=== PATIENT | male | born 1975 | race Caucasian/White ===

== ENCOUNTER 2017-10-21 16:28 | Emergency (ER) | payer SELFPAY ==
[2017-10-21 16:34] VITALS: BP 127/98; PULSE 80; TEMP 98; BMI 31.1
--- NOTE | 2017-10-21 16:54 | PDOC ---
History of Present Illness - General Chief Complaint: Blood Pressure Problem Stated Complaint: BLOOD PRESSURE CHECK Time Seen by Provider: 10/21/17 16:47 History Source: Patient, [employer] Helper Used (#[id number]) Exam Limitations: Clinical Condition - History of Present Illness Initial Comments: 10/21/17 17:11 Patient with no sig Past medical history present with complain of 3 years history of intermittent headache and malaise and request to do a physical exam. Patient hasn't seen any primary care for over 3 years. Report no symptoms now. Patient feels he might have blood pressure problem Past History - Past Medical History Allergies/Adverse Reactions: Allergies Allergy/AdvReac Type Severity Reaction Status Date / Time No Known Allergies Allergy Verified 10/21/17 16:34 Home Medications: Ambulatory Orders NK [No Known Home Medication] 10/21/17 COPD: No - Surgical History Appendectomy: Yes - Suicide/Smoking/Psychosocial Hx Smoking History: Never smoked Review of Systems - Review of Systems Able to Perform ROS?: Yes Is the patient limited Croatian proficient: No Constitutional: No: Chills, Diaphoresis, Fever, Loss of Appetite, Malaise, Night Sweats, Weakness, Weight Stable, Unintentional Wgt. Loss, Unexplained wgt Loss, Other HEENTM: No: Eye Pain, Blurred Vision, Tearing, Recent change in vision, Double Vision, Cataracts, Ear Pain, Ocular Prothesis, Ear Discharge, Nose Pain, Nose Congestion, Tinnitus, Nose Bleeding, Hearing Loss, Throat Pain, Throat Swelling , Mouth Pain, Dental Problems, Difficulty Swallowing, Mouth Swelling, Other Respiratory: No: Cough, Orthopnea, Shortness of Breath, SOB with Exertion, SOB at Rest, Stridor, Wheezing, Productive cough, Hemoptysis, Other Cardiac (ROS): Yes: Other (elevated blood pressure). No: Chest Pain, Edema, Irregular Heart Rate, Lightheadedness, Palpitations, Syncope, Chest Tightness ABD/GI: No: Abdominal Distended, Abd. Pain w/ defecation, Blood Streaked Bowels , Constipated, Diarrhea, Difficulty Swallowing, Nausea, Poor Appetite, Poor Fluid Intake, Rectal Bleeding, Vomiting, Indigestion, Abdominal cramping, Tarry Stools, Other Neurological: Yes: See HPI, Headache (intermittent). No: Numbness, Paresthesia , Pre-Existing Deficit, Weakness, Unsteady Gait, Dizziness All Other Systems: Reviewed and Negative *Physical Exam - Vital Signs Last Vital Signs Temp Pulse Resp BP Pulse Ox 98 F 80 18 127/98 99 10/21/17 16:30 10/21/17 16:30 10/21/17 16:30 10/21/17 16:30 10/21/17 16:30 - Physical Exam Comments: 10/21/17 17:13 GENERAL: Well developed, well nourished. Awake and alert. No acute distress. HEENT: Normocephalic, atraumatic. PERRLA, EOMI. No conjunctival pallor. Sclera are non- icteric. Moist mucous membranes. Oropharynx is clear. NECK: Supple. Full ROM. No JVD. Carotid pulses 2+ and symmetric, without bruits. No thyromegaly. No lymphadenopathy. CARDIOVASCULAR: Regular rate and rhythm. No murmurs, rubs, or gallops. Distal pulses are 2+ and symmetric. PULMONARY: No evidence of respiratory distress. Lungs clear to auscultation bilaterally. No wheezing, rales or rhonchi. ABDOMINAL: Soft. Non-tender. Non-distended. No rebound or guarding. No organomegaly. Normoactive bowel sounds. MUSCULOSKELETAL Normal range of motion at all joints. No bony deformities or tenderness. No CVA tenderness. EXTREMITIES: No cyanosis. No clubbing. No edema. No calf tenderness. SKIN: Warm and dry. Normal capillary refill. No rashes. No jaundice. NEUROLOGICAL: Alert, awake, appropriate. Cranial nerves 2-12 intact. No deficits to light touch and temperature in face, upper extremities and lower extremities. No motor deficits in the in face, upper extremities and lower extremities. Normoreflexic in the upper and lower extremities. Normal speech. Toes are down- going bilaterally. Gait is normal without ataxia. PSYCHIATRIC: Cooperative. Good eye contact. Appropriate mood and affect. General Appearance: Yes: Nourished, Appropriately Dressed. No: Apparent Distress Medical Decision Making - Medical Decision Making 10/21/17 17:13 Patient with no sig Past medical history presenting with for physical exam with feeling of elevated blood pressure as he was told by a friend to have a checkup. Patient hasn't seen primary care in over 3 years. Clinical exam unremarkable. Patient stable for home discharge with referral to primary care for checkup. *DC/Admit/Observation/Transfer Diagnosis at time of Disposition: Elevated blood pressure reading in office without diagnosis of hypertension - Discharge Dispostion Disposition: HOME Condition at time of disposition: Stable Decision to Admit order: No - Referrals Referrals: Annabelle Turk MD [Staff Physician] - - Patient Instructions Printed Discharge Instructions: DI for High Blood Pressure, How to Monitor Your Blood Pressure at Home Additional Instructions: Follow-up with referred primary care doctor for full physical - Post Discharge Activity
== END 2017-10-21 17:14 | disposition home or self-care (01) ==
LOC: JERFT 16:28
DX: R03.0 Elevated blood-pressure reading, without diagnosis of hypertension (principal)
CPT/HCPCS: 99281-25

== ENCOUNTER 2017-12-01 16:20 | Emergency (ER) | payer OTHER ==
[2017-12-01 16:43] VITALS: BP 106/74; PULSE 60; TEMP 98.5; BMI 27.5
--- NOTE | 2017-12-01 16:44 | PDOC ---
Rapid Medical Evaluation Time Seen by Provider: 12/01/17 16:40 Medical Evaluation: Allergies Allergy/AdvReac Type Severity Reaction Status Date / Time No Known Allergies Allergy Verified 12/01/17 16:40 10 16:40 I have performed a brief in-person evaluation of this patient. The patient presents with a chief complaint of: sent from primary physician's office for abnormal ekg. Patient reports chest pain with exertion and intermittently Denies pain at present. Pertinent physical exam findings are: NAD even and unlabored breathing heart s1s2 I have ordered the following: ekg, labs The patient will proceed to the ED for further evaluation.
--- NOTE | 2017-12-01 17:47 | PDOC ---
History of Present Illness <Simi Moyer - Last Filed: 12/01/17 21:20> - History of Present Illness Initial Comments: 42 year old male with no PMH presenting with exertional left sided chest pressure for the past one month. States that when he exercises he gets a 5/10, non-radiating, left sided chest pressure that resolves when ceasing his workout. He saw Dr. Ferrari earlier today who was convinced by his history and TWI in II, III., and AVF. Patient denies any previous cardiac workup or cardiac history. Denies fevers, chills, nausea, vomiting, diarrhea, or other symptoms. 12/01/17 17:54 <Lauri Brooks - Last Filed: 12/01/17 21:40> - General Chief Complaint: Chest Pain Stated Complaint: CHEST PAIN Time Seen by Provider: 12/01/17 16:40 Past History <Simi Moyer - Last Filed: 12/01/17 21:20> - Past Medical History COPD: No - Surgical History Appendectomy: Yes - Suicide/Smoking/Psychosocial Hx Smoking History: Never smoked Hx Alcohol Use: No Drug/Substance Use Hx: No <Lauri Brooks - Last Filed: 12/01/17 21:40> - Past Medical History Allergies/Adverse Reactions: Allergies Allergy/AdvReac Type Severity Reaction Status Date / Time No Known Allergies Allergy Verified 12/01/17 16:40 Home Medications: Ambulatory Orders Aspirin [ASA -] 81 mg PO DAILY #30 tab.chew 12/01/17 Review of Systems - Review of Systems Constitutional: No: Chills, Diaphoresis, Fever HEENTM: No: Eye Pain, Blurred Vision, Tearing Respiratory: No: Cough, Orthopnea, Shortness of Breath Cardiac (ROS): Yes: Chest Pain. No: Edema, Irregular Heart Rate, Lightheadedness, Palpitations, Syncope ABD/GI: No: Diarrhea, Nausea, Vomiting : No: Burning, Dysuria Musculoskeletal: No: Back Pain, Gout, Joint Pain Integumentary: No: Bruising, Change in Color, Erythema, Flushing, Lesions Neurological: No: Headache, Numbness, Paresthesia Psychiatric: No: Anxiety, Depression Endocrine: No: Flushing Hematologic/Lymphatic: No: Anemia, Blood Clots, Easy Bleeding <Lauri Brooks - Last Filed: 12/01/17 21:40> *Physical Exam - Vital Signs Last Vital Signs Temp Pulse Resp BP Pulse Ox 98.5 F 60 16 106/74 99 12/01/17 16:40 12/01/17 16:40 12/01/17 16:40 12/01/17 16:40 12/01/17 16:40 <Simi Moyer - Last Filed: 12/01/17 21:20> - Vital Signs Last Vital Signs Temp Pulse Resp BP Pulse Ox 98.5 F 60 16 106/74 99 12/01/17 16:40 12/01/17 16:40 12/01/17 16:40 12/01/17 16:40 12/01/17 16:40 - Physical Exam General Appearance: Yes: Nourished, Appropriately Dressed. No: Apparent Distress HEENT: positive: EOMI, OCTAVIO, Normal ENT Inspection, Normal Voice Neck: positive: Trachea midline, Normal Thyroid, Supple. negative: Tender, Rigid Respiratory/Chest: positive: Lungs Clear, Normal Breath Sounds. negative: Chest Tender, Respiratory Distress, Accessory Muscle Use Cardiovascular: positive: Regular Rhythm, Regular Rate Gastrointestinal/Abdominal: positive: Normal Bowel Sounds, Flat, Soft. negative : Tender Lymphatic: negative: Adenopathy, Tenderness Musculoskeletal: positive: Normal Inspection. negative: Decreased Range of Motion Extremity: positive: Normal Capillary Refill, Normal Inspection, Normal Range of Motion. negative: Tender Integumentary: positive: Normal Color, Dry, Warm Neurologic: positive: Fully Oriented, Alert, Normal Mood/Affect, Normal Response , Motor Strength 5/5 <Lauri Brooks - Last Filed: 12/01/17 21:40> Heart Score/ECG Review - History History: Moderately suspicious - Risk Factors Based on the list above the patient has:: No risk factors known - Troponin Troponin: </= normal limit <Simi Moyercyndiascencion - Last Filed: 12/01/17 21:20> - History History: Moderately suspicious - Electrocardiogram EKG: Non specific repolarization disturbance - Age Age: </= 45 - Risk Factors Based on the list above the patient has:: No risk factors known - Troponin Troponin: </= normal limit - Score Heart Score - Total: 2 <Lauri Brooks - Last Filed: 12/01/17 21:40> ED Treatment Course - LABORATORY CBC & Chemistry Diagram: 12/01/17 18:33 12/01/17 18:33 - ADDITIONAL ORDERS Additional order review: Laboratory Results 12/01/17 12/01/17 12/01/17 19:56 18:33 18:27 PT with INR 10.30 INR 0.87 PTT (Actin FS) 33.6 Sodium 137 Potassium 4.5 Chloride 107 Carbon Dioxide 30 Anion Gap 0 L BUN 18 Creatinine 0.8 Creat Clearance w eGFR > 60 Random Glucose 89 Calcium 9.6 Total Bilirubin 0.2 AST 41 H ALT 104 H Alkaline Phosphatase 100 Troponin I < 0.02 < 0.02 Total Protein 7.2 Albumin 4.0 12/01/17 18:33 RBC 5.55 MCV 87.5 MCHC 33.1 RDW 13.6 MPV 9.8 Neutrophils % 52.6 Lymphocytes % 38.8 Monocytes % 7.3 Eosinophils % 1.0 Basophils % 0.3 - RADIOLOGY Radiology Studies Ordered: Category Date Time Status CHEST PA & LAT [RAD] Stat Radiology 12/01/17 18:56 Taken <Simi Moyer - Last Filed: 12/01/17 21:20> - LABORATORY CBC & Chemistry Diagram: 12/01/17 18:33 12/01/17 18:33 <Lauri Brooks - Last Filed: 12/01/17 21:40> Medical Decision Making - Medical Decision Making 42 year old male with one to two months of chest pressure on exertion. Currently asymptomatic. Troponins x 2 negative and EKG x 2 negative and CXR clear. EKG showing rate 59, MD 148, QRS 80, QTc 340, and normal axis with non specific replorization in V2 and V3 equivocal in repeat EKG 4 hours later. Discussed case with Dr. Hoff and he agrees with send out cardiology follow up. Will DC with return precautions and follow up instructions. 12/01/17 21:29 <Lauri Brooks - Last Filed: 12/01/17 21:40> *DC/Admit/Observation/Transfer <Simi Moyer - Last Filed: 12/01/17 21:20> - Discharge Dispostion Decision to Admit order: No <Ali,Khameinei - Last Filed: 12/01/17 21:40> Diagnosis at time of Disposition: Chest pain Qualifiers: Chest pain type: unspecified Qualified Code(s): R07.9 - Chest pain, unspecified - Discharge Dispostion Disposition: HOME Condition at time of disposition: Improved - Prescriptions Prescriptions: Aspirin [ASA -] 81 mg PO DAILY #30 tab.chew - Referrals Referrals: Singh Meadows MD [Staff Physician] - Germán Moore MD [Staff Physician] - - Patient Instructions Printed Discharge Instructions: DI for Atypical Chest Pain Additional Instructions: Por favor miriam sarah beth yamileth con kyaw de los cardilogos que enumeramos en esta hoja. Por favor use Aspirina 81 mg (aspirina para beb) diariamente. Regrese al departamento de emergencias si tiene empeoramiento del dolor de pecho o cualquier otro sntoma relacionado. Print Language: SAMI
[2017-12-01 18:44] LABS: BASO % 0.3 % (0-2.0); HEMATOCRIT 48.6 % (35.4-49); HEMOGLOBIN 16.1 GM/dL (11.7-16.9); LYMPH % 38.8 % (8-40); MCH 28.9 pg (25.7-33.7); MCHC 33.1 g/dl (32.0-35.9); MEAN CELL VOLUME 87.5 fl (80-96); MEAN PLT VOLUME 9.8 fl (7.5-11.1); MONO % 7.3 % (3.8-10.2); NEUT % 52.6 % (42.8-82.8); PLATELET COUNT 181 K/MM3 (134-434); RBC 5.55 M/mm3 (4.00-5.60); RDW 13.6 % (11.9-15.9); WHITE BLOOD COUNT 6.2 K/mm3 (4.0-10.0)
[2017-12-01 18:55] LABS: INR 0.87 (0.83-1.09); PROTHROMBIN TIME (PATIENT) 10.3 SEC (9.7-13.0)
[2017-12-01 18:58] LABS: ACTIVATED PTT 33.6 SECONDS (25.2-36.5)
[2017-12-01 19:34] LABS: ALK PHOS 100 U/L (45-117); ANION GAP 0 MMOL/L (8-16); BILIRUBIN,TOTAL 0.2 mg/dL (0.2-1); BLOOD UREA NITROGEN 18 mg/dL (7-18); CALCIUM 9.6 mg/dL (8.5-10.1); CHLORIDE 107 mmol/L (98-107); CO2 30 mmol/L (21-32); CREATININE 0.8 mg/dL (0.55-1.3); GLUCOSE,RANDOM 89 mg/dL (74-106); POTASSIUM 4.5 mmol/L (3.5-5.1); SGOT/AST 41 U/L (15-37); SGPT/ALT 104 U/L (13-61); SODIUM 137 mmol/L (136-145); TOT PROT 7.2 g/dl (6.4-8.2)
--- NOTE | 2017-12-01 20:40 | PDOC ---
Attending Attestation - Resident Resident Name: Lauri Broosk - ED Attending Attestation I have performed the following: I have examined & evaluated the patient, The case was reviewed & discussed with the resident, I agree w/resident's findings & plan - HPI HPI: 12/01/17 20:40 42 year old male with no PMH presenting with exertional left sided chest pressure x 1 month; notes 5/10 chest pressure, nonradiating with exercise. no changes in intensity or frequency. no f/c, sob, n/v/d, weakness or paresthesias. no family history of sig heart disease or CAD/sudden deaths. 12/01/17 20:41 12/01/17 21:33 - Physicial Exam PE: 12/01/17 20:41 NAD, well appearing, MMM, nl conjunctiva, anicteric; neck supple. lungs clear, RRR, abdomen soft nontender. DELEON x4, no focal neuro deficits. No peripheral edema. normal color for ethnicity, WWP. - Medical Decision Making 12/01/17 20:41 42 year old male with no PMH presenting with exertional left sided chest pressure x 1 month; notes 5/10 chest pressure, nonradiating with exercise. initially in PMD office with ?TWI in EKGs, inferior leads; repeat EKG here as documented, no ischemic findings, no elevations or depressions x 2 EKGs. Vital signs reviewed, wnl. NO hypoxia or respiratory sx. Prior notes reviewed, including admissions, discharges and consultations. laboratory results and imaging reviewed, basic labs and lytes wnl, notable for neg trops x 2. HEART score 2 which denotes Low risk and probability for ACS, less than 1% risk for MACE at 30 days. No risk factors including comorbidities, gender, family and tobacco use. DDx includes ACS, angina, chest pain NOS, costochondritis, GERD, pleurisy, anxiety, esophageal spasm. Low suspicion for pulmonary embolism or dissection. PERC negative with no significant risk factors EKG normal sinus rhythm, no interval abnormalities, narrow QRS, ST and T wave segments and morphology normal. Nonspecific T wave abnormalities in III, no elevations or depression has been chest pain free here. remains well, NAD, VS wnl. Dispo: updated PMD Dr. Rosario, agreeable to plan, will give cards referrals for outpatient testing return precautions provided, including respiratory sx, syncope, worse CP or other concerns. [facility] Pt informed of my clinical impression, treatment recommendations and disposition plan. All questions answered to patient's satisfaction and expressed understanding and comfort with this. Reasons for returning to the ED sooner discussed with the patient otherwise, follow up with primary care physician. At the time of discharge, the patient is alert, clinically improved, tolerating po and verbalizes understanding of instructions. 12/01/17 21:34 Heart Score/ECG Review - History History: Moderately suspicious - Electrocardiogram EKG: Non specific repolarization disturbance - Age Age: </= 45 - Risk Factors Based on the list above the patient has:: No risk factors known - Troponin Troponin: </= normal limit - Score Heart Score - Total: 2 - ECG Impressions Comment:: 12/01/17 21:31 EKG normal sinus rhythm, no interval abnormalities, narrow QRS, ST and T wave segments and morphology normal. Nonspecific T wave abnormalities in III, no elevations or depression
--- NOTE | 2017-12-02 10:46 | EKG ---
Test Reason : Blood Pressure : / mmHG Vent. Rate : 056 BPM Atrial Rate : 056 BPM P-R Int : 150 ms QRS Dur : 080 ms QT Int : 380 ms P-R-T Axes : 045 -07 025 degrees QTc Int : 366 ms SINUS BRADYCARDIA OTHERWISE NORMAL ECG NO PREVIOUS ECGS AVAILABLE Confirmed by JONO NJ, ELIESER ([id number]) on 12/02/2017 10:46:47 AM Referred By: Confirmed By:ELIESER DE LA CRUZ MD
--- NOTE | 2017-12-05 18:05 | EKG ---
Test Reason : Blood Pressure : / mmHG Vent. Rate : 059 BPM Atrial Rate : 059 BPM P-R Int : 148 ms QRS Dur : 080 ms QT Int : 344 ms P-R-T Axes : 045 -02 033 degrees QTc Int : 340 ms SINUS BRADYCARDIA NONSPECIFIC T WAVE ABNORMALITY ABNORMAL ECG NO PREVIOUS ECGS AVAILABLE Confirmed by ROMEO JACOBO MD ([id number]) on 12/05/2017 6:04:49 PM Referred By: Confirmed By:ROMEO JACOBO MD
== END 2017-12-01 21:45 | disposition home or self-care (01) ==
LOC: JER 16:20
DX: R07.9 Chest pain, unspecified (principal)
CPT/HCPCS: 36415; 71046-TC-FY; 80053; 84484; 85025; 85610; 85730; 93005; 93010; 99283-25

== ENCOUNTER 2022-12-21 15:00 | Emergency (ER) | payer OTHER ==
[2022-12-21 15:06] VITALS: BP 125/85; PULSE 80; RESP 18; TEMP 98.2; BMI 27.6
[2022-12-21] MEDS ORDERED: LORATADINE 10 MG TABLET PO ONE (16:39)
[2022-12-21] MEDS ORDERED: DEXAMETHASONE SOD PHOSPHATE 10 MG/1 ML VIAL IM ONE (16:39)
[2022-12-21] MEDS ORDERED: LORATADINE 10 MG TABLET ONE (16:42)
[2022-12-21] MEDS ORDERED: DEXAMETHASONE SOD PHOSPHATE 10 MG/1 ML VIAL ONE (16:42)
== END 2022-12-21 16:58 | disposition home or self-care (01) ==
LOC: JER 15:00 → JERFT 15:00
PROC: 3E023GC Introduction of Other Therapeutic Substance into Muscle, Percutaneous Approach (ICD-10-PCS; principal; 2022-12-21)
DX: R21 Rash and other nonspecific skin eruption (principal); L29.9 Pruritus, unspecified; L25.9 Unspecified contact dermatitis, unspecified cause
CPT/HCPCS: 99284-25; J1100

== ENCOUNTER 2023-01-20 08:38 | Emergency (ER) | payer OTHER ==
[2023-01-20 08:46] VITALS: BP 119/88; PULSE 116; RESP 17; TEMP 98.3; BMI 29.2
[2023-01-20] MEDS ORDERED: ACETAMINOPHEN 500 MG TABLET (FP) PO ONE (09:37)
[2023-01-20] MEDS ORDERED: ACETAMINOPHEN 500 MG TABLET (FP) ONE (09:38)
== END 2023-01-20 10:24 | disposition home or self-care (01) ==
LOC: JER 08:38
DX: R50.9 Fever, unspecified (principal); R05.9 Cough, unspecified; M79.10 Myalgia, unspecified site; J10.1 Influenza due to other identified influenza virus with other respiratory manifestations; Z20.822 Contact with and (suspected) exposure to COVID-19
CPT/HCPCS: 0241U-QW; 99283-25